=== PATIENT | female | born 1975 | race Caucasian/White ===

== ENCOUNTER 2018-12-09 18:05 | Emergency (ER) | payer MEDICAID, OTHER ==
[~2018-12-09] VITALS: Ht 152.4 cm; Wt 58.5 kg
[~2018-12-09 18:05] MED LIST: FAMO-96 PO; ONDA4TAB8 PO
[2018-12-09 18:08] VITALS: Ht 152.4 cm; Wt 58.5 kg
--- NOTE | 2018-12-09 19:23 | ERD ---
ER Documentation Chief Complaint Chief Complaint ABD PAIN, N/V/D HPI This is a pleasant 43-year-old female who presents for evaluation of intermittent periumbilical abdominal pain, for the last 4 days. This is associated with watery diarrhea, and is described as a burning sensation. She denies vomiting, she has not had a fever, there are no alleviating or aggravating factors. She denies pelvic pain, no vaginal discharge. ROS All systems reviewed and are negative except as per history of present illness. Medications Home Meds Active Scripts Ondansetron Hcl* (Zofran*) 4 Mg Tablet, 4 MG PO Q8H PRN for NAUSEA AND/OR VOMITING, #12 TAB Prov:THONG EMMANUEL MD 12/09/18 Famotidine* (Pepcid*) 20 Mg Tablet, 20 MG PO BID for 10 Days, TAB Prov:THONG EMMANUEL MD 12/09/18 Allergies Allergies: Coded Allergies: No Known Allergy (Unverified , 12/09/18) PMhx/Soc Medical and Surgical Hx: pt denies Surgical Hx History of Surgery: No Anesthesia Reaction: No Hx Neurological Disorder: No Hx Respiratory Disorders: No Hx Cardiac Disorders: No Hx Psychiatric Problems: No Hx Miscellaneous Medical Probl: No Hx Alcohol Use: No Hx Substance Use: No Hx Tobacco Use: No Smoking Status: Never smoker Physical Exam Vitals Vital Signs Date Temp Pulse Resp B/P (MAP) Pulse Ox O2 O2 Flow FiO2 Time Delivery Rate 12/09/18 74 18 137/80 100 Room Air 19:41 (99) 12/09/18 98.5 89 17 138/69 99 18:08 (92) Physical Exam Const: No acute distress, well-developed well-nourished Head: Atraumatic Eyes: Normal Conjunctiva ENT: Normal External Ears, Nose and Mouth. Neck: Full range of motion. No meningismus. Resp: Clear to auscultation bilaterally Cardio: Regular rate and rhythm, no murmurs Abd: Soft, non distended, no rebound or guarding, there is very minimal tenderness over the pubic area, there is no McBurney's point tenderness, no rebound or guarding. Normal bowel sounds Skin: No petechiae or rashes Back: No midline or flank tenderness Ext: No cyanosis, or edema Neur: Awake and alert Psych: Normal Mood and Affect Result Diagram: 12/09/188 12/09/181857 Results 24 hrs Laboratory Tests Test 12/09/18 18:49 12/09/18 18:51 12/09/18 18:58 12/09/18 19:09 Bedside Urine pH 6.0 (LAB) Bedside Urine Trace Protein (LAB) Bedside Urine Negative Glucose (UA) Bedside Urine Trace Ketones (LAB) Bedside Urine 2+ Blood Bedside Urine Negative Nitrite (LAB) Bedside Urine Negative Leukocyte Esterase (L POC Beta HCG, NEGATIVE NEGATIVE Qualitative White Blood Count 6.0 10^3/ul Red Blood Count 3.87 10^6/ul Hemoglobin 11.1 g/dl Hematocrit 33.9 % Mean Corpuscular 87.6 fl Volume Mean Corpuscular 28.7 pg Hemoglobin Mean Corpuscular 32.7 g/dl Hemoglobin Concent Red Cell 13.8 % Distribution Width Platelet Count 221 10^3/UL Mean Platelet 10.0 fl Volume Immature 0.200 % Granulocytes % Neutrophils % 72.5 % Lymphocytes % 19.2 % Monocytes % 6.8 % Eosinophils % 1.0 % Basophils % 0.3 % Nucleated Red 0.0 /100WBC Blood Cells % Immature 0.010 10^3/ul Granulocytes # Neutrophils # 4.4 10^3/ul Lymphocytes # 1.2 10^3/ul Monocytes # 0.4 10^3/ul Eosinophils # 0.1 10^3/ul Basophils # 0.0 10^3/ul Nucleated Red 0.0 10^3/ul Blood Cells # Urine Color YELLOW Urine Clarity CLEAR Urine pH 6.0 Urine Specific 1.017 [place] Urine Ketones NEGATIVE mg/dL Urine Nitrite NEGATIVE mg/dL Urine Bilirubin NEGATIVE mg/dL Urine Urobilinogen NEGATIVE mg/dL Urine Leukocyte NEGATIVE Kyler/ul Esterase Urine Microscopic 8 /HPF RBC Urine Microscopic 2 /HPF WBC Urine Squamous FEW /HPF Epithelial Cells Urine Mucus FEW /HPF Urine Hemoglobin 2+ mg/dL Urine Glucose NEGATIVE mg/dL Urine Total NEGATIVE mg/dl Protein Sodium Level 138 mmol/L Potassium Level 3.4 mmol/L Chloride Level 103 mmol/L Carbon Dioxide 26 mmol/L Level Anion Gap 9 Blood Urea 8 mg/dl Nitrogen Creatinine 0.65 mg/dl Est Glomerular > 60 mL/min Filtrat Rate mL/min Glucose Level 140 mg/dl Calcium Level 9.2 mg/dl Total Bilirubin 0.5 mg/dl Direct Bilirubin 0.00 mg/dl Indirect Bilirubin 0.5 mg/dl Aspartate Amino 16 IU/L Transf (AST/SGOT) Alanine 13 IU/L Aminotransferase ( ALT/SGPT) Alkaline 48 IU/L Phosphatase Total Protein 7.4 g/dl Albumin 4.0 g/dl Globulin 3.40 g/dl Albumin/Globulin 1.17 Ratio Lipase 46 U/L Current Medications Medications Dose Sig/Genesis Start Time Status Last (Trade) Ordered Route PRN Stop Time Admin Dose Reason Admin Ondansetron 4 mg ONCE STAT 12/09/18 DC 12/09/18 HCl (Zofran IV 19:43 19:53 Inj) 12/09/18 19:45 Famotidine 20 mg ONCE ONCE 12/09/18 DC 12/09/18 (Pepcid) PO 20:00 19:53 12/09/18 20:01 Procedures/MDM 43-year-old female presents with abdominal pain. On exam she has no peritoneal signs and no signs of a surgical abdomen. I have a very low suspicion for acute appendicitis or diverticular-itis. She has no complaints, doubt ovarian tors ion, or pelvic inflammatory disease. 8:19 PM: Labs returned unremarkable, ultrasound showing no evidence of cholelithiasis or acute cholecystitis. Patient's pain has improved, at this point I feel she is stable for discharge home, prescription for Pepcid and Zofran, strict return questions were given to return for any worsening abdominal pain, particularly localized pain to the lower quadrants, fever inability to tolerate oral intake or any worsening symptoms at discharge she was in no distre ss Departure Diagnosis: Primary Impression: Abdominal pain Abdominal location: unspecified location Qualified Codes: R10.9 - Unspecified abdominal pain Condition: Stable THONG EMMANUEL MD Dec 09, 2018 19:23
[2018-12-09] MEDS ORDERED: ONDANSETRON 4 MG INJ IV STA (19:43)
[2018-12-09] MEDS ORDERED: FAMOTIDINE 20 MG TAB PO ONE (20:00)
[2018-12-09 20:50] VITALS: BP 126/74; PULSE 76; RESP 18
== END 2018-12-09 20:50 | disposition home or self-care (01) ==
LOC: E/R 18:05
DX: R10.33 Periumbilical pain (principal)
CPT/HCPCS: 36415; 76705; 80053; 81001; 81003; 81025; 83690; 85025; 96374; J2405; Z7502; Z7610; 93005